=== PATIENT | male | born 1960 | race African-American/Black ===

== ENCOUNTER 2017-07-22 11:27 | Emergency (ER) | payer OTHER ==
[~2017-07-22] VITALS: Ht 177.8 cm; Wt 98.6 kg
[~2017-07-22 11:27] MED LIST: ASPIR-LOW81 MG PO; LISINOPRIL; METFORMIN HCL1000 MG PO; NAPROXEN500 MG PO; PERCOCET 5/31 TABLET PO; PRILOSEC OTC20 MG PO
[2017-07-22 12:26] LABS: HEMATOCRIT 43.3 % (38.0-50.0); HEMOGLOBIN 15.5 G/DL (12.5-16.6); MCH 33.8 PG (29.0-34.0); MCHC 35.8 G/DL (30.0-36.0); MCV 94.3 FL (86-99); PLATELET COUNT 338 K/uL (156-360); RBC DIS.WIDTH-CV 12.4 % (11.8-14.6); RBC DIS.WIDTH-SD 43.2 % (39-53); RED BLOOD COUNT 4.59 M/uL (4.00-5.50); WHITE BLOOD COUNT 9.3 K/uL (4.1-10.2)
[2017-07-22 12:40] LABS: CHLORIDE 102 mEq/L (99-109); POTASSIUM 3.9 mEq/L (3.7-5.4); SODIUM 137 mEq/L (136-147)
[2017-07-22 12:41] LABS: GLUCOSE 238 mg/dL (70-99)
[2017-07-22 12:45] LABS: CREATININE 1.2 mg/dL (0.6-1.3); GFR ESTIMATE (CALCULATED) > 59 mL/min/ (58.99-99999)
[2017-07-22 12:46] LABS: UREA NITROGEN (BUN) 18 mg/dL (9-23)
[2017-07-22 12:48] LABS: TROP-I INTERPRETATION NEGATIVE; TROPONIN-I 0.03 ng/mL (0.0-0.30)
[2017-07-22 14:19] LABS: APPEARANCE SL.HAZY ((CLEAR)); BILIRUBIN MODERATE; BLOOD NEGATIVE; COLOR AMBER ((YELLOW)); GLUCOSE (STRIP) NEGATIVE; KETONES 5; LEUKOCYTES NEGATIVE; NITRITE NEGATIVE; PROTEIN (STRIP) 30; SPECIFIC GRAVITY 1.035 (1.000-1.030)
[2017-07-22 14:22] LABS: BACTERIA NONE SEEN /HPF; EPITHELIAL CELLS RARE /HPF; HYALINE CASTS 40-50 /LPF; MUCUS 1+ /LPF; RED BLOOD CELLS 0-5 /HPF (0-5); UCUL ADDED? NO; WHITE BLOOD CELLS 0-5 /HPF (0-5)
[2017-07-22 14:41] LABS: ICTOTEST POSITIVE
[2017-07-22] MEDS ORDERED: TAMIFLU75 MG PO (15:19)
[2017-07-22] MEDS ORDERED: ZOFRAN ODT4 MG PO (15:19)
[2017-07-22 15:28] VITALS: BP 133/92
== END 2017-07-22 15:40 | disposition home or self-care (01) ==
LOC: EME 11:27
PROVIDERS: Nurse Practitioner Family; Physician Assistant Medical
DX: J11.1 Influenza due to unidentified influenza virus with other respiratory manifestations (principal); E11.9 Type 2 diabetes mellitus without complications; Z79.84 Long term (current) use of oral hypoglycemic drugs; Z79.82 Long term (current) use of aspirin
CPT/HCPCS: 71045; 80048; 81003; 82948; 84484; 85027; 87502; 93005; 99281; 99284; J7030